=== PATIENT | male | born 1945 | race Hispanic/Latino ===

== ENCOUNTER → 2022-11-22 | Day surgery (SDC) | payer MEDICARE ==
[2022-11-21 10:32] LABS: BASOPHILS % 0.5 % (0.0-1.0); EOSINOPHILS # (AUTO) 0.2 (0.0-0.4); EOSINOPHILS % 3.7 % (0.0-6.0); HEMOGLOBIN 13.2 g/dL (14.0-18.0); LYMPHOCYTES # (AUTO) 1.7 (1.0-3.2); LYMPHOCYTES % 27.2 % (18.0-39.1); MEAN CORPUSCULAR HEMOGLOBIN 30.4 pg (28-32); MEAN CORPUSCULAR HGB CONC 33.8 g/dL (31-35); MEAN CORPUSCULAR VOLUME 89.9 fL (81-99); MONOCYTES # (AUTO) 0.6 (0.2-0.8); MONOCYTES % 10.2 % (4.4-11.3); NEUTROPHILS # (AUTO) 3.6 (2.1-6.9); NEUTROPHILS % 58.2 % (38.7-80.0); PLATELET COUNT 139 x10e3/uL (140-360); RED BLOOD COUNT 4.34 x10e6/uL (4.3-5.7); RED CELL DISTRIBUTION WIDTH 13.1 % (11.7-14.4)
[~2022-11-22] MED LIST: CARVEDILOL3.125 MG PO; CRESTOR10 MG PO; DEXTROSE 5% 250ML 250 ML IV ONE; EPHEDRINE SULFATE INJ 50 MG/ML VIAL ONE; FUROSEMIDE40 MG PO; JARDIANCE25 MG; LACTATED RINGER'S 1,000 ML ONE; LIDOCAINE HCL 2% LOCAL INJ 5 ML SDV VIAL INJ ONE; MECLIZINE HCL12.5 MG PO; NITROFURANTOIN100 MG PO; OZEMPIC0.25 MG/0. SC; PANTOPRAZOLE SO20 MG; PRIMIDONE1 GM; PROPOFOL IV EMULSION 10 MG/ML 20 ML VIAL ONE; TRESIBA FL200 UNIT/1; TRICOR145 MG PO; VASCEPA1 GM PO; VITAMIN D
[2022-11-22 10:35] VITALS: BP 129/69
== END | disposition home or self-care (01) ==
LOC: OR 08:16
PROVIDERS: ATTEND Internal Medicine Gastroenterology
DX: Z12.11 Encounter for screening for malignant neoplasm of colon (principal); D12.2 Benign neoplasm of ascending colon; D12.3 Benign neoplasm of transverse colon; K29.50 Unspecified chronic gastritis without bleeding; B96.81 Helicobacter pylori [H. pylori] as the cause of diseases classified elsewhere; K59.00 Constipation, unspecified; K64.8 Other hemorrhoids; R97.0 Elevated carcinoembryonic antigen [CEA]; D64.9 Anemia, unspecified; E11.22 Type 2 diabetes mellitus with diabetic chronic kidney disease; I12.9 Hypertensive chronic kidney disease with stage 1 through stage 4 chronic kidney disease, or unspecified chronic kidney disease; N18.4 Chronic kidney disease, stage 4 (severe); E78.5 Hyperlipidemia, unspecified; N39.0 Urinary tract infection, site not specified; Z01.810 Encounter for preprocedural cardiovascular examination; Z01.812 Encounter for preprocedural laboratory examination; Z79.84 Long term (current) use of oral hypoglycemic drugs; Z79.85 Long-term (current) use of injectable non-insulin antidiabetic drugs; Z79.4 Long term (current) use of insulin; Z79.899 Other long term (current) drug therapy; Z85.46 Personal history of malignant neoplasm of prostate; Z68.30 Body mass index [BMI] 30.0-30.9, adult; Z80.0 Family history of malignant neoplasm of digestive organs
CPT/HCPCS: 36415 ×2; 43239; 45385; 82948; 85025; 88305; 88342; 93005; J2001; J2704; J7070; J7121; 45378; 88304; 88312